=== PATIENT | male | born 1940 | race Caucasian/White ===

== ENCOUNTER 2025-01-14 22:30 | Observation (INO) | payer OTHER, SELFPAY ==
[2025-01-14 18:59] VITALS: BP 165/62
[2025-01-14 19:15] LABS: % Basophils 0.7 % (0-2); % Eosinophils 1.9 % (0-6); % Immature Granulocytes 0.2 % (0-0.5); % Lymphocytes 21.5 % (20.5-51.1); % Monocytes 7.4 % (1.7-9.3); % Neutrophils 68.3 % (42.2-75.2); Absolute Basophils 0.1 10^3/uL (0-0.2); Absolute Eosinophils 0.2 10^3/uL (0-0.7); Absolute Lymphocytes 1.7 10^3/uL (1.2-3.4); Absolute Monocytes 0.6 10^3/uL (0.1-0.6); Absolute Neutrophils 5.5 10^3/uL (1.4-6.5); Hematocrit 39.9 % (39.0-52.0); Hemoglobin 13.4 g/dL (13.0-18.0); Mean Corp Hgb Conc. 33.6 g/dL (33.0-37.0); Mean Corpuscular Hgb 30.9 pg (27.0-31.0); Mean Corpuscular Volume 91.9 fL (80.0-94.0); Mean Platelet Volume 9.7 fL (7.4-10.4); Nucleated Red Blood Cells % 0 % (-); Platelet Count 182 10^3/uL (130-400); Red Blood Cell Count 4.34 10^6/uL (4.70-6.10)
[2025-01-14 19:35] LABS: ALT (SGPT) 21 U/L (0-50); AST (SGOT) 25 U/L (17-59); Albumin 4.4 g/dl (3.5-5.0); Alkaline Phosphatase 76 U/L (38-126); Blood Urea Nitrogen 32 mg/dl (9-20); Calcium 9.6 mg/dl (8.4-10.2); Carbon Dioxide 29 mmol/L (22-30); Glucose 215 mg/dl (70-99); Total Bilirubin 0.6 mg/dl (0.2-1.3); eGFR 46.19
[2025-01-14 19:53] LABS: Chloride 103 mmol/L (98-107); Potassium 4.6 mmol/L (3.5-5.1); Sodium 140 mmol/L (135-145)
[2025-01-14 21:49] VITALS: BP 158/68; BMI 19.5
--- NOTE | 2025-01-14 21:51 | ED.GENMED ---
History of Present Illness
General
Chief Complaint: Rectal Bleeding
Source: patient
Exam Limitations: none
Time Seen by Provider: 01/14/25 21:15
History of Present Illness
History of Present Illness:
2 episodes of bright red rectal bleeding. First 1 at 4 PM. Second 1 at 7 PM. [place] slightly off during the earlier episode. Describes as a half a cup. Previous episodes. History of colitis. History of rectal CA. No stool with this.
Past History
Past History
ED Past Medical History: COPD, HTN, Hypercholesterolemia, NIDDM and Other (Colorectal CA)
ED Past Surgical History: Other (colon resection w colostomy/reversal; right inguinal hernia repair)
Social History
Tobacco: Non-smoker
Alcohol: None
Personal:
Employment: Retired
Family History
Family History: Other (Noncontributory)
Phy Exam
Physical Exam
Physical Exam:
GENERAL: Alert and oriented in no apparent distress
EYE: Orbits normal.
CARDIAC: Regular rate and rhythm without any obvious murmurs.
LUNGS: Clear breath sounds,normal
ABDOMEN: Soft, without focal tenderness or distention. Rectal exam with moderate amount of bright red blood. No external hemorrhoid or fissure
NEUROLOGICAL: Alert and oriented , grossly non-focal
SKIN: Warm and dry, no rash or lesion, no discoloration, skin intact.
MUSCULOSKELETAL: No edema,no deformity.Good color
PSYCH: Normal and appropriate interaction.
Course
Orders/Labs/Results
Orders:
Orders
01/14/25 Breakfast
Clear Liquid
At Your Request: Full Participation
Does patient need a safe tray?: No
01/14/25 19:09
Type+Screen Urgent
Complete Blood Count/With Diff Urgent
Comprehensive Metabolic Panel Urgent
01/14/25 22:15
Admit/Transfer Patient As Directed
Co-Sign Provider:
Level of Care: Observation services
Assign to:: Telemetry
Physician / Group: Tera
Diagnosis: Rectal Bleeding
Reason for Telemetry: Arrhythmia
Date to Stop Telemetry: 01/17/25
Time to Stop Telemetry: 11:00
PRN Pain Medication Management As Directed
May give lesser potent ordered pain med per pt: Yes
preference::
Protocol:: Medication orders for pain may be administered in a
manner that supports deferring to patient preference
when the pt is:
- Requesting an ordered lesser potent pain medication.
Least to most potent pain medications are defined
as: acetaminophen < NSAID < tramadol < opioids
(morphine, oxycodone, hydromorphone).
- Requesting a lesser dose of the same medication IF
ORDERED.
- Requesting a less intrusive route of administration
if both routes are prescribed by the provider (PO <
IV).
01/14/25 22:16
Code Status As Directed
Resuscitation Status: Full Code
01/14/25 23:01
0.9% Sodium Chloride 1000 ml [Nss] 1,000 ml IV 60 mls/hr
Acetaminophen [Tylenol] 650 mg PO Q4HPRN PRN
Dextrose 50%-Water [Dextrose 50% Syringe] 12.5 grams IV [id number] PRN
Glucagon [GlucaGen] 1 mg IM PRN PRN
01/14/25 23:01
Consult Notification Routine
Specialty to Notify: Gastroenterology
GASTROINTESTINAL CONSULT Routine
Consulting Provider: Karina Campbell
Was physician already notified: No
Reason for consult: Rectal Bleeding
Activity As Directed
Activity Level: Out of Bed-Early Mobility
With Assistance
Bedside Glucose Monitoring As Directed
Frequency: AC&HS
Additional Instructions:: Change to q6h if pt on TPN, tube feeding or not eating
I&O [Intake/ Output] As Directed
Frequency: q12h
Pneumatic Compression Sleeves As Directed
Type: Knee high
Vital Signs As Directed
Frequency: Per unit guidelines
DX Deep Vein Thrombosis Video Routine
01/15/25 01:00
H&H Routine
01/15/25 06:00
Basic Metabolic Panel IN AM
Complete Blood Count/No Diff IN AM
01/15/25 07:30
Insulin Aspart Corrective Low [Novolog Flexpen-Low Resistance] See Protocol SC AC
01/15/25 08:00
Amlodipine Besylate/Benazepril [Lotrel 10 mg/20 mg] 1 capsule PO DAILY
Rosuvastatin Calcium [Crestor] 10 mg PO DAILY
01/17/25 11:00
DC Protocol for Telemetry ONCE
Abnormal Lab Results
01/14/25
19:09
RBC 4.34 L 10^6/uL
(4.70-6.10)
BUN 32 H mg/dl
(9-20)
Creatinine 1.5 H mg/dL
(0.7-1.3)
Glucose 215 H mg/dl
(70-99)
01/14/25 19:09
01/14/25 19:09
Vital Signs
Initial and Last Documented VS:
Initial Vital Signs
Temp Pulse Resp BP Pulse Ox
98.0 F 70 16 165/62 97
01/14/25 18:59 01/14/25 18:59 01/14/25 18:59 01/14/25 18:59 01/14/25 18:59
Last Documented Vital Signs
Temp Pulse Resp BP Pulse Ox
97.8 F 54 20 160/64 95
01/14/25 23:12 01/14/25 23:12 01/14/25 23:12 01/14/25 23:12 01/14/25 23:12
MDM/Problems Addressed
Differential Diagnosis Includes:
Patient medically stable. But with 2 episodes of bright red rectal bleeding warrants inpatient management
*Pulse Oximetry
Patient hypoxic: no
*Critical Care Note
Total Time (30-74mins, 75-104mins- exclusive of procedures): Not Applicable
Data Reviewed
Review of Other/Old Records Reveals: Labs, Records and Testing
ED Attending Note
-
Portions of this chart may have been created with voice recognition software.� Occasional wrong word or��sound alike� substitutions may have occurred due to the inherent limitations of voice recognition software.
Discharge Plan
Departure
Patient Disposition: Admit
Date of Disposition: 01/14/25
Time of Disposition: 21:52
Presentation/result/management discussed w/ accepting MD/DO: Hospitalist
Discharge Problem:
Lower GI bleeding
Interventions
Interventions:
*Risk Screen - Suicide Last Done: 01/14/25 21:50
*General Assessment Last Done: 01/14/25 21:50
*Neglect/Abuse Screening Last Done: 01/14/25 21:50
*ED- Fall Risk Assessment Last Done: 01/14/25 21:50
*ED COVID-19 Vaccine History Last Done: 01/14/25 23:20
*Nursing Disposition Last Done: 01/14/25 23:02
SS-Dkwcpc-Yfwgiuqbvh Assessment Last Done: 01/14/25 21:57
ED- Cardiac Assessment Last Done: 01/14/25 21:57
ED- Pulmonary Assessment Last Done: 01/14/25 21:57
Discharge Date and Time
Discharge Date/Time: 01/14/25 23:03
[2025-01-14 22:00] VITALS: BP 157/69
--- NOTE | 2025-01-14 22:18 | HPS.HSE ---
Addendum entered and electronically signed by Santi Haley DO 01/14/25 23:01:
Patient is an 84y M with PMH significant for hypertension, DM-II and rectal cancer (s/p treatment) who presents to ED complaining of bright red blood per rectum. Patient states that he developed some suprapubic discomfort / crampy pain and felt
fatigued around 3 PM. At 4 PM he passed about 1/2 cup of bright red blood. No stool. He had a second episode around 6 PM which prompted him to present to the ED for further evaluation. He denies any further abdominal pain. No N/V. Not
lightheaded, dizzy, SOB, etc. Here in the ED, patient had a third / smaller episode of BRBPR.
Ass:
BRBPR
History of Rectal Cancer s/p Surgery, Chemo and XRT
benign Hypertension
DM-II
CKD III
Plan:
Observe overnight for further evaluation and treatment.
Follow for further bleeding.
Follow BP, Hgb, etc.
GI evaluation for additional recommendations.
Continue BP medication with holding parameters.
Hold DM medications acutely.
Original Note:
Family Physician
-
Family Physician:
Chief Complaint
-
Rectal Bleeding
History of Present Illness
Patient is a 84 y/o male past medical history of hypertension, hyperlipidemia, diabetes, CKD and rectal cancer who presents with rectal bleeding. Patient reports around 3pm he developed some suprapubic abdominal discomfort and felt very tired.
Around 4pm he went to use the bathroom and passed about a half cup of bright red blood. Around 6pm he passed around another quater cup of blood which prompting him to come to the emergency department for evaluation. He denies any subsequent
episodes while in the emergency department. He denies any abdominal pain or discomfort at the present time. He denies nausea, vomiting or diarrhea. He denies fevers, sweats or chills.
Medical History
Past Medical History
Past Medical History: Reports Other
Additional Past Medical History:
Essential Hypertension
Hyperlipidemia
Diabetes Mellitus, Type II
CKD Stage 3B
Rectal Cancer
Past Surgical History: Reports Other
Additional Past Surgical History:
Bowel Resection with Colostomy, and Subsequent Reversal
Hernia Repair
Social History
Tobacco: Former Smoker (Quit in 1991)
Alcohol: None
Personal:
Living: Alone
Family History
Family History: Not pertinent
Allergies / Home Medications
Allergies reflects when Allergies were last updated in [facility].
Home Medications with original date entered in [facility]
Allergy/Medication List:
Allergies
Allergy/AdvReac Type Severity Reaction Status Date / Time
No Known Allergies Allergy Verified 01/14/25 21:49
Home Medications
amlodipine 10 mg-benazepril 20 mg capsule 1 cap PO DAILY 10/25/15
rosuvastatin 10 mg tablet 10 mg PO DAILY 06/01/21
dapagliflozin propanediol 5 mg tablet (Farxiga) 5 mg PO DAILY@1800 01/14/25
glimepiride 2 mg tablet 2 mg PO DAILY 01/14/25
loperamide 2 mg capsule 2 mg PO Q6H PRN diarrhea 01/14/25
sitagliptin phosphate 100 mg tablet (Januvia) 100 mg PO DAILY 01/14/25
Review of Systems
-
A 12 point ROS was completed and negative except as noted: Yes
Constitutional: Denies Fever or Chills
Respiratory: Denies Cough or Trouble Breathing
Cardiac: Denies Chest Pain or Palpitations
Abdomen/GI: Reports See HPI
Physical Exam
Vital Signs
Vital Signs
Temp Pulse Resp BP Pulse Ox
98.6 F 56 18 158/68 99
01/14/25 21:49 01/14/25 21:49 01/14/25 21:49 01/14/25 21:49 01/14/25 21:49
Physical Exam
General: Comfortable and Conversant
HEENT: Anicteric and Moist mucous membranes
Respiratory: Clear and Non Labored Respirations
Cardiac: S1/S2 and Regular Rhythm
GI: Soft and Non Tender
Rectal: Other (Red blood per ED provider)
Musculoskeletal: No Clubbing, No Cyanosis and No Edema
Skin: Warm and Dry
Neuro: Awake, Alert, Oriented and Nonfocal/grossly intact
Psych: Calm
Laboratory Results
-
01/14/25 19:09
01/14/25 19:09
Laboratory Results
Total Bilirubin 0.6 mg/dl (0.2-1.3) 01/14/25 19:09
AST 25 U/L (17-59) 01/14/25 19:09
ALT 21 U/L (0-50) 01/14/25 19:09
Alkaline Phosphatase 76 U/L (38-126) 01/14/25 19:09
Data Reviewed
-
Lab Data: Labs Reviewed by me
Impression/Plan
-
Rectal Bleeding
-Consult GI
-Allow clear liquid
-Trend serial Hgb
Essential Hypertension
-Continue amlodipine/benazepril with hold parameters
Hyperlipidemia
-Continue atorvastatin
Diabetes Mellitus, Type II
-Hold oral meds
-Monitor Is&OS and Daily Weights
CKD Stage 3B
-Creatinine appears to be close to baseline
Hx Rectal Cancer s/p Resection, Chemotherapy and Radiation
DVT proph: SCDs
Code Status: Full Code
--- NOTE | 2025-01-14 23:00 | PTCARENOTE ---
Pt arrived from Ed via stretcher. Pt stood at the bedside, offer no c/o. Advised Pt to use call austin to get oob, Pt agreeable. vss. nsr on monitor. oriented to room. call austin within reach.
[2025-01-14 23:12] VITALS: BP 160/64; BMI 19.0
[2025-01-14] MEDS: NSS 1000 IV (23:24)
[2025-01-15 01:23] LABS: Hematocrit 35.7 % (39.0-52.0)
[2025-01-15 03:38] VITALS: BP 123/49
[2025-01-15 07:01] LABS: Hematocrit 33.6 % (39.0-52.0); Hemoglobin 11.5 g/dL (13.0-18.0); Mean Corp Hgb Conc. 34.2 g/dL (33.0-37.0); Mean Corpuscular Hgb 31.3 pg (27.0-31.0); Mean Corpuscular Volume 91.6 fL (80.0-94.0); Mean Platelet Volume 10.5 fL (7.4-10.4); Platelet Count 160 10^3/uL (130-400); Red Blood Cell Count 3.67 10^6/uL (4.70-6.10); Red Cell Dist. Width 12.2 % (11.5-14.5); White Blood Cell Count 6.1 10^3/uL (4.8-10.8)
--- NOTE | 2025-01-15 07:09 | W.PN.HOSP.TC ---
Today's Communication/Plan
-
See plan
Assessment / Plan
Assessment / Plan
Physical Exam
General: Comfortable and Conversant
HEENT: Anicteric and Moist mucous membranes
Respiratory: Clear and Non Labored Respirations Bilaterally
Cardiac: S1/S2 and Regular Rate and Rhythm
GI: Soft and Non Tender. Positive bowel sounds.
Musculoskeletal: No Cyanosis and No Edema
Skin: Warm and Dry
Neuro: Awake, Alert, Oriented and Nonfocal/grossly intact
Psych: Calm
Assessment/Plan
84 y/o male with past medical history significant for hypertension, DM-II and rectal cancer (s/p treatment) who presented complaining of bright red blood per rectum. Patient stated that he developed some suprapubic discomfort / crampy pain and felt
fatigued, and a short while later, he passed about 1/2 cup of bright red blood. No stool. He had a second episodes a few hours later which prompted him to present to the ED for further evaluation. He denied any further abdominal pain. No N/V.
Not lightheaded, dizzy, SOB, etc.
Rectal Bleeding
-Consult GI
-Allow clear liquid diet, no red
-Trend serial Hgb
-If with active bleeding consider CTA
-GI mentioned small nodule on rectal exam. Possible colonoscopy depending on how patient does.
Essential Hypertension
-Continue amlodipine/benazepril with hold parameters
Hyperlipidemia
-Continue atorvastatin
Diabetes Mellitus, Type II
-Hold oral meds
-Monitor Is&OS and Daily Weights
Chronic Kidney Disease Stage 3B
-Creatinine appears to be close to baseline
History of Rectal Cancer status post Resection, Chemotherapy and Radiation
DVT Prophylaxis: SCDs only.
Code Status: Full Code
Anticipated Discharge: 24 - 48 hours
Subjective/Interval History
-
Date of Service: January 15, 2025
Patient was seen and examined. He had more bloody bowel movements since being in the hospital. He denied any other symptoms or complaints.
Objective Data
-
Labs:
Laboratory Results
01/14/25 01/15/25 01/15/25
19:09 01:14 06:15
WBC 8.0 6.1
Hgb 13.4 12.0 L 11.5 L
Hct 39.9 35.7 L 33.6 L
Plt Count 182 160
Sodium 140 Pending
Potassium 4.6 Pending
Chloride 103 Pending
Carbon Dioxide 29 Pending
BUN 32 H Pending
Creatinine 1.5 H Pending
Glucose 215 H Pending
Calcium 9.6 Pending
Total Bilirubin 0.6
AST 25
ALT 21
Alkaline Phosphatase 76
Vital Signs:
Vital Signs
Temp Pulse Resp BP Pulse Ox
98 F 49 20 123/49 97
01/15/25 03:38 01/15/25 03:38 01/15/25 03:38 01/15/25 03:38 01/15/25 03:38
I&O
01/14/25 01/15/25 01/16/25
06:59 06:59 06:59
Intake Total 360 / 360
Balance 360 / 360
[2025-01-15 07:30] VITALS: BP 127/49
[2025-01-15 07:36] LABS: Glucose - Point of Care 170 mg/dl (70-99)
[2025-01-15 07:42] LABS: Blood Urea Nitrogen 28 mg/dl (9-20); Carbon Dioxide 26 mmol/L (22-30); Chloride 109 mmol/L (98-107); Estimated Creatinine Clearance 37 ml/min; Glucose 146 mg/dl (70-99); Potassium 4.2 mmol/L (3.5-5.1); Sodium 141 mmol/L (135-145); eGFR 54.85
[2025-01-15] MEDS: LOTREL 10 MG/20 MG 1 CAPSULE PO (09:04)
[2025-01-15] MEDS: CRESTOR 10 MG PO (09:04)
[2025-01-15] MEDS: NOVOLOG FLEXPEN-LOW RESISTANCE SC ×2 (09:09→16:51)
--- NOTE | 2025-01-15 09:24 | CON.GI ---
Addendum entered and electronically signed by Karina Campbell DO 01/15/25 14:11:
Seen and examined independently of EDUARDO. Agree with her note with my additions below
Gerald is an 84-year-old male with history of rectal cancer stage III status post low anterior section with loop ileostomy and radiation chemo then reversal with diagnosis around 2005. He comes in with rectal bleeding that is bright red with some
mucus but no significant stool. States over the weekend he had his common intermittent increased frequency and took an Imodium which he only takes about once a month. Denied straining or having any pain. No nausea no vomiting no anorexia or
weight loss
The blood has slowed down going from over a cup to now small teaspoons. He has had this twice before once says he was admitted here 5 years ago. He has refused further colonoscopies with his last colonoscopy in 2010 which was unremarkable with
[facility]. He is not on any blood thinners denies taking any NSAIDs. Hemoglobin on admission was 12 now 11.5. No imaging was done
# Rectal bleeding -patient is asymptomatic and hemodynamically stable
-- Bright red small amounts which appears to be improving
-- No blood thinners, no need for transfusion hemoglobin is relatively stable
-- Will proceed to flexible sigmoidoscopy tomorrow with sedation -will give 1 bottle of mag citrate this evening followed by clear liquids then an enema in the morning
-- PPI once daily
-- etiology of bleeding could be fissure versus Internal hemorrhoids versus diverticular versus neoplasm less likely discussed with family at bedside
-- Discussed with family at bedside. Patient now agreeable
Original Note:
Consultation
-
Date/Time Consultation Requested: 01/14/25 2301
Date/Time Consultation Performed: 01/15/25 0910
Requesting Provider: JAY Nails
Performing Provider: Dr. Campbell/EDUARDO Han
Reason for Consultation: rectal bleeding
Medical History
Chief Complaint / HPI
Chief Complaint: rectal bleeding
History of Present Illness:
84-year-old male with past medical history of hypertension, diabetes, rectal cancer stage III status post low anterior resection with loop ileostomy 01/18/2006 status post radiation, chemo, hyperlipidemia, bilateral inguinal hernia repair, Lyme
disease, chronic intermittent fecal incontinence, CKD who presents to the emergency room with rectal bleeding. Asked to evaluate for the same. The patient was previously seen by Dr. Cole with his last colonoscopy in 2010 which showed a prior
ileocolonic anastomosis otherwise normal. He was recommended to have a repeat surveillance in 5 years (due 2015). At that time he wanted no further colonoscopies. He was seen in the office in August after having diarrhea and urgency after being
started on metformin. After stopping metformin he had improvement of symptoms. He has a chronic issue of fecal incontinence after having his surgery for colorectal cancer. He will have intermittent loose stools with fecal seepage. He usually
controls this with dietary modification and occasional Imodium. He was offered colonoscopy at that time and at which point he declined. He states that his stools became back to normal after stopping the metformin. He states that usually he will
have bowel movements that can be soft or irregular with pebble-like bowel movements. Depending on Imodium intake. He states that he had looser stools so he took an Imodium over the weekend. This gave him pebble-like stool on Tuesday. He states
that yesterday he had an episode where he felt 'funny' in his lower abdomen there was no pain. He went to the bathroom where he passed approximately half cup of bright red blood and mucus. A little bit later in the afternoon he passed 1/4 cup of
blood and mucus and at that point he came to the emergency room. Since that time he has passed approximately 5 more episodes of 1 to 2 teaspoons at a time of blood with small amounts of clots within it. There has been no passage of stool during
this time. He denies any fevers, chills, nausea, vomiting, melena, dysphagia or dyne aphasia. No early satiety or unintentional weight loss. He denies any aspirin, ibuprofen or NSAIDs. He denies any anticoagulation. He denies any changes in
medications. He denies any sick contacts. He has no abdominal pain, diaphoresis, dizziness or lightheadedness. He denies any chest pain or shortness of breath. He is tolerating clear liquids without any difficulty. Hemoglobin is currently 11.5
down from 13.4. WBC count is 6.1, platelets 160. Sodium 141, potassium 4.2, chloride 109, CO2 26, BUN 28, creatinine 1.3, glucose 146 total bilirubin 0.6, AST 25, ALT 21, alk phos 76. No imaging this admission.
Past Medical History
Past Medical History: Cancer (rectal cancer 2005, status post low anterior resection with loop ileostomy status post radiation, chemo, CKD, Lyme disease), HTN and Hypercholesterolemia
Past Surgical History: Bowel Resection and Other (Bilateral inguinal hernia repair, vasectomy,)
Social History
Tobacco: Former Smoker
Alcohol: None
Drug: None
Family History
Family History: Other (Cousin with colon cancer otherwise no family history of gastrointestinal malignancy or IBD)
Allergies / Home Medications
Allergy/AdvReac Type Severity Reaction Status Date / Time
No Known Allergies Allergy Verified 01/14/25 21:49
�Medication �Instructions �Recorded
amlodipine 10 mg-benazepril 20 mg 1 cap PO DAILY 10/25/15
capsule
rosuvastatin 10 mg tablet 10 mg PO DAILY 06/01/21
dapagliflozin propanediol 5 mg 5 mg PO DAILY@1800 01/14/25
tablet (Farxiga)
glimepiride 2 mg tablet 2 mg PO DAILY 01/14/25
loperamide 2 mg capsule 2 mg PO Q6H PRN diarrhea 01/14/25
sitagliptin phosphate 100 mg 100 mg PO DAILY 01/14/25
tablet (Januvia)
Review of Systems
-
All other systems: A 12 pt ROS was Negative except as stated above in HPI
Vital Signs
Temp Pulse Resp BP Pulse Ox
98.1 F 51 18 127/49 96
01/15/25 07:30 01/15/25 07:30 01/15/25 07:30 01/15/25 09:04 01/15/25 07:30
Physical Exam
Exam
General: No Apparent Distress
HEENT: Anicteric
Respiratory: Clear
Cardiac: Regular Rhythm
GI: Soft, Non Tender, Non Distended and Normal Bowel Sounds
Rectal: Other ( Rectal exam performed by myself no obvious blood on glove, small approx 5mm nodule just inside anal verge at 6 o'clock position. )
Skin: Warm and Dry
Neuro: AO x 3
Psych: Calm
Results
WBC 6.1 10^3/uL (4.8-10.8) 01/15/25 06:15
Hgb 11.5 g/dL (13.0-18.0) L 01/15/25 06:15
Hct 33.6 % (39.0-52.0) L 01/15/25 06:15
MCV 91.6 fL (80.0-94.0) 01/15/25 06:15
Plt Count 160 10^3/uL (130-400) 01/15/25 06:15
Absolute Neuts (auto) 5.5 10^3/uL (1.4-6.5) 01/14/25 19:09
Sodium 141 mmol/L (135-145) 01/15/25 06:15
Potassium 4.2 mmol/L (3.5-5.1) 01/15/25 06:15
Chloride 109 mmol/L (98-107) H 01/15/25 06:15
Carbon Dioxide 26 mmol/L (22-30) 01/15/25 06:15
BUN 28 mg/dl (9-20) H 01/15/25 06:15
Creatinine 1.3 mg/dL (0.7-1.3) 01/15/25 06:15
Calcium 9.0 mg/dl (8.4-10.2) 01/15/25 06:15
Total Bilirubin 0.6 mg/dl (0.2-1.3) 01/14/25 19:09
AST 25 U/L (17-59) 01/14/25 19:09
ALT 21 U/L (0-50) 01/14/25 19:09
Alkaline Phosphatase 76 U/L (38-126) 01/14/25 19:09
Diagnostic Image Results:
None this admission
Prior GI Procedures:
EGD: Never
Colonoscopy: 02/03/2011 ([facility]) - Patent end-to-end ileo-colonic anastomosis.
- The examination was otherwise normal.
Assessment / Plan
-
84-year-old male with past medical history of hypertension, diabetes, rectal cancer stage III status post low anterior resection with loop ileostomy 01/18/2006 status post radiation, chemo, hyperlipidemia, bilateral inguinal hernia repair, Lyme
disease, chronic intermittent fecal incontinence, CKD who presents to the emergency room with rectal bleeding. Asked to evaluate for the same. The patient was previously seen by Dr. Cole with his last colonoscopy in 2010 which showed a prior
ileocolonic anastomosis otherwise normal. He was recommended to have a repeat surveillance in 5 years (due 2015). At that time he wanted no further colonoscopies. He was seen in the office in August after having diarrhea and urgency after being
started on metformin. After stopping metformin he had improvement of symptoms. He has a chronic issue of fecal incontinence after having his surgery for colorectal cancer. He will have intermittent loose stools with fecal seepage. He usually
controls this with dietary modification and occasional Imodium. Patient took Imodium over weekend. Had pebble-like stools on Tuesday. Tuesday had a 'funny 'feeling in low abdomen followed by passage of half cup of blood with mucus. Second episode
quarter cup of blood and mucus. Presented to emergency room. Has had approximately 5 episodes of 1 to 2 tablespoons since that time. Denies any abdominal pain. No leukocytosis or fever. Tolerating clear liquid diet. No NSAIDs or
anticoagulation. No hypotension. Hemoglobin 11.5 down from 13.4 on arrival. Rectal exam performed by myself no obvious blood on glove, small approx 5mm nodule just inside anal verge at 6 o'clock position.
Impression:
Rectal Bleeding (painless)
--> Hemoglobin 11.5, down from 13.4
Hx Rectal Cancer (2005) status post low anterior resection with loop ileostomy status post reversal, status post chemo and XRT
--> Last colonoscopy 2010(patent end-to-end ileocolonic anastomosis) repeat 2016. Patient declined colonoscopy since that time.
Chronic intermittent fecal incontinence since surgery
Plan:
-Continue clear liquid diet, no red
-If with active bleeding consider CTA
-Discussed with patient repeat colonoscopy, at this time he is hesitant. There was a small nodule felt on rectal exam. May be postsurgical.
-Trend hemoglobin, currently present rectal exam without blood on glove.
-Further recommendations to be forthcoming.
-
-
Thank you for consultation and allowing me to participate in the patient's care. Please call the integration solution architect GI physician during the after hours with any questions or concerns.
--- NOTE | 2025-01-15 09:32 | CM ---
Patient seen at bedside.
IA Completed
OBS status-ABDUL form explained & signed, in chart
Dx: rectal bleeding
PMH: rectal ca, htn, DM II
Patient lives in a farmhouse with his 23 y/o niece, 9 steps to enter, stairs to second floor
PLOF: Independent, no assistive device
Denies DME
[facility] many years ago, denies rehab
PCP: Enma Sanchez
Pharmacy: [address], [place]
PLAN: Home, currently no needs anticipated
[2025-01-15 11:16] VITALS: BP 127/55
[2025-01-15 12:04] LABS: Glucose - Point of Care 217 mg/dl (70-99)
[2025-01-15] MEDS: NOVOLOG FLEXPEN-LOW RESISTANCE 2 UNITS SC (12:30)
[2025-01-15] MEDS: NSS 1000 IV (15:06)
[2025-01-15 15:25] VITALS: BP 120/52
[2025-01-15 16:35] LABS: Glucose - Point of Care 88 mg/dl (70-99)
[2025-01-15] MEDS: CITROMA 300 ML PO (17:32)
[2025-01-15 19:17] VITALS: BP 139/57
[2025-01-15 21:18] LABS: Glucose - Point of Care 147 mg/dl (70-99)
[2025-01-15 23:33] VITALS: BP 125/57
[2025-01-16] VITALS (8 sets, daily range): BP systolic 115–136; BP diastolic 46–66; BMI 19.0; BMI 18.9
--- NOTE | 2025-01-16 07:06 | W.PN.HOSP.TC ---
Today's Communication/Plan
-
Communicated with gastroenterology via [place] Text and Dr. Campbell recommended watching patient for 1 more day; patient had significant colitis on sigmoidoscopy today
See plan
Assessment / Plan
Assessment / Plan
Physical Exam
General: Comfortable and Conversant
HEENT: Anicteric and Moist mucous membranes
Respiratory: Clear and Non Labored Respirations Bilaterally
Cardiac: S1/S2 and Regular Rate and Rhythm
GI: Soft and Non Tender. Positive bowel sounds.
Musculoskeletal: No Cyanosis and No Edema
Skin: Warm and Dry
Neuro: Awake, Alert, Oriented and Nonfocal/grossly intact
Psych: Calm
Assessment/Plan
84 y/o male with past medical history significant for hypertension, DM-II and rectal cancer (s/p treatment) who presented complaining of bright red blood per rectum. Patient stated that he developed some suprapubic discomfort / crampy pain and felt
fatigued, and a short while later, he passed about 1/2 cup of bright red blood. No stool. He had a second episodes a few hours later which prompted him to present to the ED for further evaluation. He denied any further abdominal pain. No N/V.
Not lightheaded, dizzy, SOB, etc.
Rectal Bleeding secondary to ulceration/erythema in the anorectal mucosa
Ulceration/erythema in lower GI tract - likely source of rectal bleeding and mucus. Etiology ischemia vs infectious vs stercoral colitis vs less likely IBD
Perianal skin tag
Patent end-to-end colo-colonic anastomosis with congestion, edema and friable mucosa just above the anus
Congested mucosa in the distal sigmoid colon (but no concerning findings)
Congested, hemorrhagic, inflamed and ulcerated mucosa from 20 to 30 cm proximal to the anus
Congested mucosa in the descending colon and in the transverse colon
One 7 mm polyp in the distal transverse colon, status post removal with a cold snare
-GI consulted, appreciate evaluation and recommendations
-Allow low residue diet, no red
-Trend serial Hgb
-If with active bleeding consider CTA
-Given sigmoidoscopy (done on 01/16/25) results above, check stool for Clostridium difficile toxin and check stool culture
-Avoid constipation or hypotension
-GI office will call patient in 1 to 2 weeks with the biopsy results
Essential Hypertension
-Continue amlodipine/benazepril with hold parameters
Hyperlipidemia
-Continue atorvastatin
Diabetes Mellitus, Type II
-Hold oral meds
-Monitor Is&OS and Daily Weights
Chronic Kidney Disease Stage 3B
-Creatinine appears to be close to baseline
History of Rectal Cancer status post Resection, Chemotherapy and Radiation
DVT Prophylaxis: SCDs only.
Code Status: Full Code
Anticipated Discharge: Within 24 hours
Subjective/Interval History
-
Date of Service: January 16, 2025
Patient was seen and examined. He had a bowel movement last night after getting bowel prep, he said there no blood in that bowel movement. He denied any other symptoms or complaints.
Objective Data
-
Vital Signs:
Vital Signs
Temp Pulse Resp BP Pulse Ox
98.4 F 46 18 118/46 97
01/16/25 03:35 01/16/25 03:35 01/16/25 03:35 01/16/25 03:35 01/16/25 03:35
I&O
01/15/25 01/16/25 01/17/25
06:59 06:59 06:59
Intake Total 360 / 360 960 / 960
Balance 360 / 360 960 / 960
[2025-01-16] MEDS: CRESTOR 10 MG PO (07:41)
[2025-01-16] MEDS: LOTREL 10 MG/20 MG 1 CAPSULE PO (07:41)
[2025-01-16 08:09] LABS: Hematocrit 38.5 % (39.0-52.0); Hemoglobin 12.7 g/dL (13.0-18.0); Mean Corpuscular Hgb 30.8 pg (27.0-31.0); Mean Corpuscular Volume 93.2 fL (80.0-94.0); Mean Platelet Volume 10.2 fL (7.4-10.4); Platelet Count 166 10^3/uL (130-400); Red Blood Cell Count 4.13 10^6/uL (4.70-6.10); Red Cell Dist. Width 12.2 % (11.5-14.5); White Blood Cell Count 5.8 10^3/uL (4.8-10.8)
[2025-01-16 08:20] LABS: Glucose - Point of Care 105 mg/dl (70-99)
[2025-01-16] MEDS: NOVOLOG FLEXPEN-LOW RESISTANCE SC ×2 (08:44→12:32)
[2025-01-16 09:17] LABS: Blood Urea Nitrogen 24 mg/dl (9-20); Calcium 9.3 mg/dl (8.4-10.2); Carbon Dioxide 26 mmol/L (22-30); Chloride 108 mmol/L (98-107); Estimated Creatinine Clearance 34 ml/min; Glucose 111 mg/dl (70-99); Magnesium 2.3 mg/dl (1.6-2.3); Potassium 4.7 mmol/L (3.5-5.1); Sodium 142 mmol/L (135-145); eGFR 50.18
[2025-01-16 09:40] LABS: Glucose - Point of Care 103 mg/dl (70-99)
[2025-01-16 12:25] LABS: Glucose - Point of Care 154 mg/dl (70-99)
[2025-01-16 12:39] LABS: Hemoglobin 12.3 g/dL (13.0-18.0)
[2025-01-16 13:05] LABS: C-Reactive Protein < 5.00 mg/L (0.0-10.00)
[2025-01-16 17:14] LABS: Glucose - Point of Care 170 mg/dl (70-99)
[2025-01-16] MEDS: NOVOLOG FLEXPEN-LOW RESISTANCE 1 UNITS SC (17:23)
[2025-01-16 21:36] LABS: Glucose - Point of Care 213 mg/dl (70-99)
[2025-01-17 03:33] VITALS: BP 117/57
[2025-01-17 03:38] LABS: Glucose - Point of Care 154 mg/dl (70-99)
[2025-01-17 06:00] VITALS: BMI 18.8
[2025-01-17 07:13] LABS: Hematocrit 36.6 % (39.0-52.0); Hemoglobin 12.2 g/dL (13.0-18.0); Mean Corp Hgb Conc. 33.3 g/dL (33.0-37.0); Mean Corpuscular Hgb 30.7 pg (27.0-31.0); Mean Corpuscular Volume 92.2 fL (80.0-94.0); Mean Platelet Volume 10.7 fL (7.4-10.4); Platelet Count 158 10^3/uL (130-400); Red Blood Cell Count 3.97 10^6/uL (4.70-6.10); Red Cell Dist. Width 12.2 % (11.5-14.5); White Blood Cell Count 6.4 10^3/uL (4.8-10.8)
[2025-01-17 07:20] VITALS: BP 122/50
--- NOTE | 2025-01-17 07:28 | W.PN.HOSP.TC ---
Today's Communication/Plan
-
Discharge today
Assessment / Plan
Assessment / Plan
Physical Exam
General: Comfortable and Conversant
HEENT: Anicteric and Moist mucous membranes
Respiratory: Clear and Non Labored Respirations Bilaterally
Cardiac: S1/S2 and Regular Rate and Rhythm
GI: Soft and Non Tender. Positive bowel sounds.
Musculoskeletal: No Cyanosis and No Edema
Skin: Warm and Dry
Neuro: Awake, Alert, Oriented and Nonfocal/grossly intact
Psych: Calm
Assessment/Plan
84 y/o male with past medical history significant for hypertension, DM-II and rectal cancer (s/p treatment) who presented complaining of bright red blood per rectum. Patient stated that he developed some suprapubic discomfort / crampy pain and felt
fatigued, and a short while later, he passed about 1/2 cup of bright red blood. No stool. He had a second episodes a few hours later which prompted him to present to the ED for further evaluation. He denied any further abdominal pain. No N/V.
Not lightheaded, dizzy, SOB, etc.
Rectal Bleeding secondary to ulceration/erythema in the anorectal mucosa
Ulceration/erythema in lower GI tract - likely source of rectal bleeding and mucus. Etiology ischemia vs infectious vs stercoral colitis vs less likely IBD
Perianal skin tag
Patent end-to-end colo-colonic anastomosis with congestion, edema and friable mucosa just above the anus
Congested mucosa in the distal sigmoid colon (but no concerning findings)
Congested, hemorrhagic, inflamed and ulcerated mucosa from 20 to 30 cm proximal to the anus
Congested mucosa in the descending colon and in the transverse colon
One 7 mm polyp in the distal transverse colon, status post removal with a cold snare
-GI consulted, appreciate evaluation and recommendations
-Continue low residue diet
-Trend serial Hgb
-If with active bleeding consider CTA
-Given sigmoidoscopy (done on 01/16/25) results above, check stool for Clostridium difficile toxin and stool culture: c-diff Ecoli neg, other cx pending
-Avoid constipation or hypotension
-GI office will call patient in 1 to 2 weeks with the biopsy results
-GI office visit scheduled 02/27/25 at 11:30 with Fabi Knowles PA-C ; consider full colonoscopy 6-8 weeks to follow up on inflammation
Asymptomatic Bradycardia
-Patient denied any shortness of breath, dizziness, chest pain or any other bradycardia-specific symptoms
-Will place outpatient cardiology referral
-I discussed the above with the patient
Essential Hypertension
-Continue amlodipine/benazepril with hold parameters
Hyperlipidemia
-Continue atorvastatin
Diabetes Mellitus, Type II
-Hold oral meds
-Monitor Is&OS and Daily Weights
Chronic Kidney Disease Stage 3B
-Creatinine appears to be close to baseline
History of Rectal Cancer status post Resection, Chemotherapy and Radiation
DVT Prophylaxis: SCDs only.
Code Status: Full Code
More than 30 minutes spent in discharge including
Final examination of the patient
Summarizing hospital stay
Instructions for continuing care to all relevant caregivers
Preparation of discharge records, prescriptions, and referral forms
Total time spent (in minutes): 39
Anticipated Discharge: Today
Subjective/Interval History
-
Date of Service: January 17, 2025
Patient was seen and examined. He denied any dizziness, chest pain, palpitations, or any bloody bowel movements overnight.
Objective Data
-
Labs:
Laboratory Results
01/17/25
06:28
WBC 6.4
Hgb 12.2 L
Hct 36.6 L
Plt Count 158
Sodium Pending
Potassium Pending
Chloride Pending
Carbon Dioxide Pending
BUN Pending
Creatinine Pending
Glucose Pending
Calcium Pending
Vital Signs:
Vital Signs
Temp Pulse Resp BP Pulse Ox
98.2 F 54 18 117/57 97
01/17/25 03:33 01/17/25 03:33 01/17/25 03:33 01/17/25 03:33 01/17/25 03:33
I&O
01/16/25 01/17/25 01/18/25
06:59 06:59 06:59
Intake Total 2160 / 2160 720 / 720
Output Total 1075 / 1075
Balance 1085 / 1085 720 / 720
[2025-01-17 07:41] LABS: Blood Urea Nitrogen 29 mg/dl (9-20); Carbon Dioxide 24 mmol/L (22-30); Chloride 105 mmol/L (98-107); Estimated Creatinine Clearance 34 ml/min; Glucose 168 mg/dl (70-99); Potassium 4.9 mmol/L (3.5-5.1); Sodium 139 mmol/L (135-145); eGFR 50.18
[2025-01-17 07:59] LABS: Glucose - Point of Care 172 mg/dl (70-99)
[2025-01-17] MEDS: NOVOLOG FLEXPEN-LOW RESISTANCE 1 UNITS SC ×2 (09:15→12:34)
[2025-01-17] MEDS: LOTREL 10 MG/20 MG 1 CAPSULE PO (09:16)
[2025-01-17] MEDS: CRESTOR 10 MG PO (09:17)
--- NOTE | 2025-01-17 10:28 | W.PN.GI.CBS2 ---
Today's Communication / Plan
-
s/p flex with ulceration/erythema at 20-30 cm--- possible ischemia, infections, stercoral colitis
bleeding now resolved
await path
hbg stable 12.2
01/16 c-diff Ecoli neg, other cx pending
cont low residue diet
avoid constipation and hypotension
office visit scheduled 02/27 at 11:30 with Fabi Knowles PA-C
discussed to patient to consider full colonoscopy 6-8 weeks to follow up on inflammation
stable from GI for discharged
reviewed via tiger text with Dr. Samayoa for discharge
Assessment / Plan
-
84-year-old male with past medical history of hypertension, diabetes, rectal cancer stage III status post low anterior resection with loop ileostomy 01/18/2006 status post radiation, chemo, hyperlipidemia, bilateral inguinal hernia repair, Lyme
disease, chronic intermittent fecal incontinence, CKD who presents to the emergency room with rectal bleeding. The patient was previously seen by Dr. Cole with his last colonoscopy in 2010 which showed a prior ileocolonic anastomosis otherwise
normal. He was recommended to have a repeat surveillance in 5 years (due 2015). At that time he wanted no further colonoscopies. He was seen in the office in August after having diarrhea and urgency after being started on metformin. After
stopping metformin he had improvement of symptoms. He has a chronic issue of fecal incontinence after having his surgery for colorectal cancer. He will have intermittent loose stools with fecal seepage. He usually controls this with dietary
modification and occasional Imodium and took Imodium over weekend. Had pebble-like stools on Tuesday. Tuesday had a 'funny 'feeling in low abdomen followed by passage of half cup of blood with mucus with several further episodes after that time. No
NSAIDs or anticoagulation.
01/16 flex with One single section (20-30cm from AV) location of ulceration/erythema - which is the likely source of
the bleeding and mucus. Etiology ischemia vs infectious vs stercoral colitis vs less likely IBD
- Perianal skin tag found on perianal exam. - Patent end-to-end colo-colonic anastomosis,
- Congested mucosa in the distal sigmoid colon (but no concerning findings). Biopsied.
distal transverse colon polyp removed with cold snare
Rectal Bleeding (painless)
abnormal flex with ulceration/erythema at 20-30 CM
Hx Rectal Cancer (2005) status post low anterior resection with loop ileostomy status post reversal, status post chemo and XRT
--> Last colonoscopy 2010(patent end-to-end ileocolonic anastomosis) repeat 2015. Patient declined colonoscopy since that time.
Chronic intermittent fecal incontinence since surgery
Plan:
s/p flex with ulceration/erythema at 20-30 cm--- possible ischemia, infections, stercoral colitis
bleeding now resolved
await path
hbg stable 12.2
01/16 c-diff Ecoli neg, other cx pending
cont low residue diet
avoid constipation and hypotension
office visit scheduled 02/27 at 11:30 with Fabi Knowles PA-C
discussed to patient to consider full colonoscopy 6-8 weeks to follow up on inflammation
stable from GI for discharged
reviewed via tiger text with Dr. Samayoa for discharge
Subjective
Subjective
Date of Service: January 17, 2025
low residue diet, 01/16 tavares stools no further bleeding
Objective
Data Reviewed
Laboratory Data:
Laboratory Results
01/17/25 06:28
01/17/25 06:28
Laboratory Results
Magnesium 2.3 mg/dl (1.6-2.3) 01/16/25 07:40
Total Bilirubin 0.6 mg/dl (0.2-1.3) 01/14/25 19:09
AST 25 U/L (17-59) 01/14/25 19:09
ALT 21 U/L (0-50) 01/14/25 19:09
Alkaline Phosphatase 76 U/L (38-126) 01/14/25 19:09
Vital Signs and I&O:
Vital Signs
Temp Pulse Resp BP Pulse Ox
98.8 F 48 16 122/50 98
01/17/25 07:20 01/17/25 09:16 01/17/25 07:20 01/17/25 09:16 01/17/25 07:20
I&O
01/16/25 01/17/25 01/18/25
06:59 06:59 06:59
Intake Total 2160 / 2160 720 / 720
Output Total 1075 / 1075
Balance 1085 / 1085 720 / 720
Physical Exam
Physical Exam
HEENT: Anicteric and Moist mucous membranes
Cardiology: Normal Sinus Rhythm
Pulmonary: Clear
GI: Soft and Non Distended
Extremities: No Edema
Neuro: Non Focal
[2025-01-17 11:15] VITALS: BP 116/51
[2025-01-17 11:43] LABS: Glucose - Point of Care 173 mg/dl (70-99)
--- NOTE | 2025-01-17 14:03 | W.DCSUMMARY ---
Discharge Summary
Discharge Data
Date of Admission: 01/14/25
Date of Discharge: 01/17/25
Total time spent discharging patient (in min): 39
-
Pending Results: Yes
Additional Pending Results:
Pathology/Biopsy Results. Follow-up results of stool microbiology studies.
Hospital Course
84 y/o male with past medical history significant for hypertension, type 2 diabetes mellitus and rectal cancer (s/p treatment) who presented reporting bright red blood per rectum. Gastroenterology was consulted, and on 01/16/25, patient had a
sigmoidoscopy which showed as per spray machine loader's report:
'Impression: One single section (20-30cm from AV) location of
ulceration/erythema - which is the likely source of
the bleeding and mucus. Etiology ischemia vs
infectious vs stercoral colitis vs less likely IBD
- Perianal skin tag found on perianal exam.
- Patent end-to-end colo-colonic anastomosis,
characterized by congestion, edema and friable mucosa
just above the anus.
- Congested mucosa in the distal sigmoid colon (but no
concerning findings). Biopsied.
- Congested, hemorrhagic, inflamed and ulcerated
mucosa from 20 to 30 cm proximal to the anus. Biopsied.
- Congested mucosa in the descending colon and in the
transverse colon. Biopsied.
- One 7 mm polyp in the distal transverse colon,
removed with a cold snare. Resected and retrieved.'
It was recommended patient avoid constipation or hypotension. C. Diff and stool culture studies were ordered. C. diff was negative. Patient had asymptomatic bradycardia for which cardiology was notified and they mentioned they could set up an
outpatient appointment to further evaluate. Patient denied any dizziness, chest pain, shortness of breath, abdominal pain or any further rectal bleeding and was stable for discharge.
Discharge Plan
-
Patient Disposition: Home (Routine Discharge)
Discharge Diagnosis/Procedures: Rectal Bleeding secondary to ulceration/erythema in the anorectal mucosa
Ulceration/erythema in lower GI tract - likely source of rectal bleeding and mucus. Etiology ischemia vs infectious vs stercoral colitis vs less likely IBD
Perianal skin tag
Patent end-to-end colo-colonic anastomosis with congestion, edema and friable mucosa just above the anus
Congested mucosa in the distal sigmoid colon (but no concerning findings)
Congested, hemorrhagic, inflamed and ulcerated mucosa from 20 to 30 cm proximal to the anus
Congested mucosa in the descending colon and in the transverse colon
One 7 mm polyp in the distal transverse colon, status post removal with a cold snare
Asymptomatic Bradycardia
Essential Hypertension
Hyperlipidemia
Type 2 Diabetes Mellitus
Chronic Kidney Disease Stage 3B
History of Rectal Cancer status post Resection, Chemotherapy and Radiation
Condition: Good
Diet: Low Residue
Additional Diets: FOLLOW A LOW RESIDUE, CARB-CONTROLLED DIET
Activity Restrictions/Additional Instructions:
FOLLOW A LOW RESIDUE DIET.
Avoid constipation or hypotension.
Gastroenterology office will call you in 1 to 2 weeks with the biopsy results.
Referrals:
Jose Luis Ron MD [Active] - 02/06/25 11:20 am (You have an appointment to see Dr. Ron at the [place] office on 02/06/2025 at 11:20 AM. Please call [phone] if you need to reschedule)
Enma Sanchez NP [Family Provider] - in less than 1 week ([facility], [facility])
Fabi Knowles PA-C [Specified Professional Personl] - 02/27/25 11:30 am
(Follow up with Fabi THOMPSON with Dr. Campbell. Call 1-2 weeks to review pathology. Consider eventual full colonoscopy to follow up for inflammation and check for any further polyps.
Please call to reschedule if you can not keep this appointment. If your insurance requires a referral please contact your primary care physician prior to your appointment. )
Additional Discharge Medication Instructions: Imodium (Loperamide) has been stopped
Prescriptions:
Continued
amlodipine-benazepril 1 CAPSULE capsule
1 cap PO DAILY
rosuvastatin 10 MG tablet
10 mg PO DAILY
glimepiride 2 mg tablet
2 mg PO DAILY
Januvia 100 mg tablet
100 mg PO DAILY
dapagliflozin propanediol [Farxiga] 5 mg tablet
5 mg PO DAILY@1800
Discontinued
loperamide [Imodium] 2 mg Capsule
2 mg PO Q6H PRN (Reason: diarrhea)
Discharge Orders:
Discharge Patient (As Directed); Ordered 01/17/25
Ordered By: Veto Samayoa
Discharge Date and Time
Discharge Date/Time: 01/17/25 15:29
Print Language: YI
--- NOTE | 2025-01-17 14:50 | CM ---
Patient is stable for d/c today
CM met w/ patient bedside w/ sister, agreeable to d/c
IMM verbally reviewed, copy provided, copy placed on chart
No CM needs identified at this time
Plan: Home; no needs
== END 2025-01-17 15:29 | disposition home or self-care (01) ==
LOC: 4 EAST ACU 22:30
PROVIDERS: Emergency Medicine; Physician Assistant Medical; ADMITTING PHYSICIAN Hospitalist; ATTENDING PHYSICIAN Hospitalist; CONSULT PHYSICIAN Internal Medicine; EMERGENCY PHYSICIAN Emergency Medicine; FAMILY PHYSICIAN Internal Medicine
DX: K63.3 Ulcer of intestine (principal); J44.9 Chronic obstructive pulmonary disease, unspecified; E78.00 Pure hypercholesterolemia, unspecified; I12.9 Hypertensive chronic kidney disease with stage 1 through stage 4 chronic kidney disease, or unspecified chronic kidney disease; K63.89 Other specified diseases of intestine; D12.3 Benign neoplasm of transverse colon; K64.4 Residual hemorrhoidal skin tags; R15.9 Full incontinence of feces; R10.2 Pelvic and perineal pain; R00.1 Bradycardia, unspecified; N18.32 Chronic kidney disease, stage 3b; E11.22 Type 2 diabetes mellitus with diabetic chronic kidney disease; Z85.048 Personal history of other malignant neoplasm of rectum, rectosigmoid junction, and anus; Z90.49 Acquired absence of other specified parts of digestive tract; Z92.3 Personal history of irradiation; Z92.21 Personal history of antineoplastic chemotherapy; Z87.891 Personal history of nicotine dependence; Z79.84 Long term (current) use of oral hypoglycemic drugs; Z98.0 Intestinal bypass and anastomosis status
CPT/HCPCS: 45338; 45331; 88305; 80048; 80053; 82962; 83735; 85014; 85018; 85025; 85027; 86140; 86850; 86900; 86901; 87045; 87046; 87324; 87427; 87449; 93005; 99285; G0378

== ENCOUNTER → 2025-03-12 10:25 | Outpatient (REF) | payer OTHER, SELFPAY | LOC: RAD 10:25 | PROVIDERS: ATTENDING PHYSICIAN Nurse Practitioner Adult Health | DX: S99.921A Unspecified injury of right foot, initial encounter (principal) | CPT/HCPCS: 73660 ==

== ENCOUNTER → 2025-10-28 13:29 | Outpatient (REF) | payer OTHER, SELFPAY | LOC: RAD 13:29 | PROVIDERS: ATTENDING PHYSICIAN Nurse Practitioner Adult Health | DX: M25.512 Pain in left shoulder (principal) | CPT/HCPCS: 73030 ==